=== PATIENT | female | born 1950 | race Caucasian/White ===

== ENCOUNTER 2017-07-28 07:37 | Day surgery (SDC) | payer BC ==
[2017-07-23 09:42] VITALS: BMI 25.0
[2017-07-28] MEDS: GENTAMICIN SULFATE 0.3% OPHTHALMIC (EYE DROPS) 5ML BOTTLE ONE ×2 (08:00→08:15)
[2017-07-28] MEDS: PHENYLEPHRINE 2.5% OPHTH SOLN 15 ML BOTTLE ONE ×5 (08:00→08:20)
[2017-07-28] MEDS: TROPICAMIDE 1% OPHTH SOLN 15 ML BOTTLE ONE ×5 (08:00→08:20)
[2017-07-28] MEDS: KETOROLAC TROMETHAMINE 0.5% 5 ML BOTTLE OPTHALMIC ONE ×5 (08:00→08:20)
[2017-07-28] MEDS: CYCLOPENTOLATE HCL 1% OPHTH SOLN 2 ML BOTTLE ONE ×5 (08:00→08:20)
[2017-07-28] MEDS ORDERED: TETRACAINE 0.5% OPHTH SOLN 2 ML BOTTLE ONE (09:27)
[2017-07-28] MEDS ORDERED: BUPIVACAINE HCL/PF 0.5% (5MG/ML) 10 ML VIAL ONE (09:27)
[2017-07-28] MEDS ORDERED: LIDOCAINE HCL 2% JELLY 10 ML CARTRIDGE ONE (09:27)
[2017-07-28] MEDS ORDERED: ACETAMINOPHEN 325 MG TABLET (FP) PO PRN (09:27)
[2017-07-28] MEDS ORDERED: ACETYLCHOLINE 1:100 INTRA-OCUL 20 MG/2 ML KIT ONE (09:27)
[2017-07-28] MEDS ORDERED: LIDOCAINE HCL/PF 2% SDV 5ML VIAL ONE ×2 (09:27→09:55)
[2017-07-28] MEDS ORDERED: MIDAZOLAM HCL 2 MG/2 ML SINGLE DOSE VIAL ONE ×2 (09:41→11:08)
[2017-07-28] MEDS ORDERED: PROPOFOL 20 ML ONE (09:55)
[2017-07-28 11:37] VITALS: TEMP 98.5
[2017-07-28 11:54] VITALS: BP 151/86; PULSE 80
--- NOTE | 2017-07-28 11:56 | OP ---
DATE OF OPERATION: 07/28/2017 TITLE OF PROCEDURE: Hypermature cataract extraction through miotic pupil of the right eye with lens implant. PREOPERATIVE DIAGNOSES: Hypermature cataract, pupillary miosis, right eye. POSTOPERATIVE DIAGNOSES: Hypermature cataract, pupillary miosis, right eye. SURGEON: Pineda Rooney MD ASPHALT HEATER OPERATOR SURGEON: Pineda Rooney MD COMPLICATIONS: None. ANESTHESIOLOGIST: Maude Echevarria MD FINDINGS AND PROCEDURE: After peribulbar anesthesia was given to the right eye, the patient was prepped and draped in the usual manner to expose the right eye with Tegaderm strips and lid speculum inserted in the right eye and the microscope brought into position over the right eye. Superior fornix-based flap was then fashioned for 10 mm using Yordy scissors and 0.12 forceps. Hemostasis achieved with electrocautery. The limbal groove was fashioned for 3 mm and dissected anterior into the clear cornea, and then, a 3-mm blade was used to enter the anterior chamber. Under Viscoat, a 360- degree anterior capsulotomy was performed, and phacoemulsification was then started of this very hypermature, 4++ nuclear sclerotic cataract. The pupil began to come down, and so, it was decided then to insert 4 iris hooks to enlarge the pupillary opening to about 8 mm. Phacoemulsification then proceeded on without complication. It was a difficult phacoemulsification due to the extreme hardness of the cataract, but this was done successfully without complication, followed by irrigation and aspiration of cortical material, leaving intact posterior capsule and a red reflex present. Provisc was injected in the posterior chamber to deepen the posterior capsule, and the implant was inspected carefully with the microscope, found to be free of defects, debris, and flaws. It was folded, placed in the Provisc-filled cartridge. The cartridge placed in the injector and then the implant injected into the eye such that the inferior haptic was in the inferior capsular bag and the superior haptic in the superior capsular bag and rotated in a horizontal position with a Sinskey hook. The Provisc was aspirated out, replaced with Miochol, Miostat, and BSS after the iris hooks all four of them were removed without complication. The wound was closed with a single interrupted 2-0 Ethilon suture and tested for leakage, and none was found. The conjunctival-tenon flap was reapproximated. As I mentioned, the Provisc was aspirated out and replaced with Miochol, Miostat, and BSS. At this point, the implant was fixated in the capsular bag, centrally located with a round pupil, intact posterior capsule, and a red reflex present. Topical Betoptic S and Maxitrol ophthalmic suspensions were placed, as was bacitracin and polymyxin B ophthalmic ointment. Tegaderm strips and lid speculum were removed from the lids. The lids were closed and a patch and shield placed on the eye. The patient was then discharged from the operating room to the recovery area in good condition, having tolerated the procedure well. Renae POLANCO/[id number]
== END 2017-07-28 11:55 | disposition home or self-care (01) ==
LOC: FASU 07:37
PROVIDERS: ATTEND Ophthalmology
PROC: 08RJ3JZ Replacement of Right Lens with Synthetic Substitute, Percutaneous Approach (ICD-10-PCS; principal; 2017-07-28 10:10)
DX: H25.21 Age-related cataract, morgagnian type, right eye (principal); H57.03 Miosis

== ENCOUNTER 2018-04-07 10:33 | Emergency (ER) | payer BC ==
[2018-04-07 10:45] VITALS: BP 155/89; PULSE 97; TEMP 98.2; BMI 25.0
[2018-04-07] MEDS ORDERED: AMPICILLIN NA/SULBACTAM NA 1.5 GM in SODIUM CHLORIDE 100 ML IVPB ONE (10:54)
[2018-04-07] MEDS ORDERED: AMPICILLIN NA/SULBACTAM NA 1.5 GM VIAL ONE (11:18)
--- NOTE | 2018-04-07 11:54 | PDOC ---
History of Present Illness - General Chief Complaint: Bite Stated Complaint: CAT BITE Time Seen by Provider: 04/07/18 10:36 History Source: Patient Exam Limitations: No Limitations - History of Present Illness Initial Comments: 04/07/18 11:49 67 y0 female here s/p cat bite to bilateral hands. pt was moving and trying to get cat into a box, bit her righthand and scratched. happened just prior to arrival. bleeding was controlled with pressure. cat is domestic cat. no f/c has had some swelling since bite. last tetanus is unknown. Past History - Past Medical History Allergies/Adverse Reactions: Allergies Allergy/AdvReac Type Severity Reaction Status Date / Time NSAIDS (Non-Steroidal AdvReac Mild Vomiting Verified 04/07/18 10:42 Anti-Inflamma ANYTHING THAT AFFECTS KIDNEYS AdvReac Unknown Uncoded 04/07/18 10:42 Home Medications: Ambulatory Orders Hydralazine HCl 50 mg PO BID 03/02/16 Levothyroxine [Synthroid -] 25 mcg PO DAILY 03/02/16 Montelukast Na [Singulair -] 10 mg PO HS 03/02/16 Pantoprazole Sodium 40 mg PO DAILY 03/02/16 Pravastatin Sodium [Pravachol] 40 mg PO DAILY 03/02/16 Duloxetine HCl [Cymbalta -] 30 mg PO DAILY #30 capsule. 03/06/16 Ascorbate Calcium [Vitamin C] 500 mg PO DAILY 07/23/17 Ferrous Sulfate [Iron] 325 mg PO DAILY 07/23/17 Gabapentin 300 mg PO HS 07/23/17 Hydroxychloroquine Sulfate [Plaquenil] 200 mg PO DAILY 07/23/17 Amoxicillin/Potassium Clav [Augmentin 875-125 Tablet] 1 each PO BID #14 tablet 04/07/18 Anemia: Yes (ON IRON) Asthma: No Cancer: No Cardiac Disorders: No CVA: No COPD: No CHF: No Dementia: No Diabetes: No GI Disorders: Yes (GERD) Disorders: Yes ("TROUBLE" WITH KIDNEYS SEVERAL YRS AGO DUE TO TOO MUCH ADVIL) HTN: Yes Hypercholesterolemia: Yes Liver Disease: No Seizures: No Thyroid Disease: Yes - Surgical History Abdominal Surgery: No Appendectomy: No Cardiac Surgery: No Cholecystectomy: No Lung Surgery: No Neurologic Surgery: No Orthopedic Surgery: Yes (RIGHT TKR 01/22/2017) - Suicide/Smoking/Psychosocial Hx Smoking History: Never smoked Have you smoked in the past 12 months: No Information on smoking cessation initiated: No Hx Alcohol Use: No Drug/Substance Use Hx: No Substance Use Type: None Hx Substance Use Treatment: No Review of Systems - Review of Systems Constitutional: No: Chills, Diaphoresis, Fever Respiratory: No: Orthopnea, Shortness of Breath Musculoskeletal: No: Back Pain, Gout, Joint Pain Integumentary: Yes: Other (bite puncture wounds) Neurological: No: Headache, Numbness Psychiatric: No: Stressors, Sleep Pattern Change All Other Systems: Reviewed and Negative *Physical Exam - Vital Signs Last Vital Signs Temp Pulse Resp BP Pulse Ox 98.2 F 97 H 20 155/89 100 04/07/18 10:33 04/07/18 10:33 04/07/18 10:33 04/07/18 10:33 04/07/18 10:33 - Physical Exam Comments: 04/07/18 11:51 awake alert lungs clear bilaterally heart systolic murmur 2/6. no r/g. skin warma nd dry. bilat hands with small puncture wounds , larger stellate wound/ laceration to right dorsum hand near index finger knuckle. distally n/v intact. flexion and extension tendons intact. 2 + radial and ulnar pulses bilaterally. Moderate Sedation - Procedure Monitoring Vital Signs: Procedure Monitoring Vital Signs Temperature 98.2 F 04/07/18 10:33 Pulse Rate 97 H 04/07/18 10:33 Respiratory Rate 20 04/07/18 10:33 Blood Pressure 155/89 04/07/18 10:33 O2 Sat by Pulse Oximetry (%) 100 04/07/18 10:33 ED Treatment Course - RADIOLOGY Radiology Studies Ordered: Category Date Time Status HAND- LEFT [RAD] Stat Radiology 04/07/18 10:54 Taken HAND- RIGHT [RAD] Stat Radiology 04/07/18 10:54 Taken - Medications Given in the ED: ED Medications Discontinued Medications Generic Name Dose Route Start Last Admin Trade Name Freq PRN Reason Stop Dose Admin Ampicillin Sodium/Sulbactam 100 mls @ 200 mls/hr 04/07/18 10:54 04/07/18 11: 39 Sodium 1.5 gm/ Sodium Chloride IVPB 04/07/18 11:23 200 mls/hr ONCE ONE Administration Medical Decision Making - Medical Decision Making 04/07/18 11:52 67 yo s/p cat bite. multilple small punctures. will leave lac open due to concerns for infection. will soak in water with betadine. rings removed. will give iv unasyn. and dc on augmentin. xray r/o fx or foreign body. 04/07/18 12:17 xray negative for fx or foreign body, dc home. soaked in water and betadine. rings removed. IV unasyn given. dc on augmentin with instructions for wound follow up. recheck in 48 hrs. *DC/Admit/Observation/Transfer Diagnosis at time of Disposition: Cat bite, Puncture wound - Discharge Dispostion Disposition: HOME Condition at time of disposition: Improved - Prescriptions Prescriptions: Amoxicillin/Potassium Clav [Augmentin 875-125 Tablet] 1 each PO BID #14 tablet - Referrals - Patient Instructions Printed Discharge Instructions: How to Care for a Domestic Animal Bite, DI for Animal Bites Additional Instructions: you need to soak your hand in soapy water twice daily. you should also take augmentin antiobiotics twice daily x one week. return for repeat evaluation in 48 hours. return soon for redness, swelling or red streaking up the arm, or fever or any concerns. you can take tylenol 500 mg every 8 hrs as needed for pain. - Post Discharge Activity
== END 2018-04-07 12:37 | disposition home or self-care (01) ==
LOC: FER 10:33
DX: S61.431A Puncture wound without foreign body of right hand, initial encounter (principal); S61.451A Open bite of right hand, initial encounter; W55.01XA Bitten by cat, initial encounter; Y93.89 Activity, other specified; Y92.89 Other specified places as the place of occurrence of the external cause
CPT/HCPCS: 73130-TC-LT-FY; 73130-TC-RT-FY; 99282-25

== ENCOUNTER 2018-12-29 13:39 | Inpatient (IN) | payer BC, OTHER ==
--- NOTE | 2018-12-29 14:20 | PDOC ---
Attending Attestation - Resident Resident Name: Jed Pierce - ED Attending Attestation I have performed the following: I have examined & evaluated the patient, The case was reviewed & discussed with the resident, I agree w/resident's findings & plan, Exceptions are as noted - HPI HPI: 12/30/18 08:54 68-year-old female without significant cardiac history presents with shortness of breath, orthopnea, and dyspnea on exertion for several weeks, worse the last 3 days. Referred from urgent care for further evaluation of an abnormal EKG. No chest pain, nausea, diaphoresis, or other obvious sign of acute AR. No fever, productive cough, or other sign of significant infection. - Physicial Exam PE: 12/30/18 08:56 Physical exam: Alert and oriented no acute distress cheerful and cooperative. Does not appear to be tachypneic or dyspneic HEENT clear Lungs clear Full breath sounds bilaterally without wheezes rales or rhonchi CV S1 and S2 normal without murmur or gallop pulses full and symmetric no JVD or edema no bruits Abdomen benign Neurological intact - Medical Decision Making 12/30/18 08:56 Assessment: Patient symptoms are vague and poorly described. They are primarily respiratory, but suggest congestive heart failure. Rule out occult AR, occult pneumonia, pulmonary embolus Plan: EKG reveals nonspecific ST-T wave changes in the inferolateral leads Cardiac enzymes reveal an elevated troponin. Chest x-ray prominent hilum on the right, possible infiltrate Patient likely sustained a silent AR. Non-STEMI. Resident Triston Pierce consulted security solutions architect motion picture set up worker. Patient treated with aspirin and admitted to telemetry for observation and further treatment. Stable upon transfer to the medical unit.
[2018-12-29 15:21] LABS: EOS % 3.3 % (0-4.5); HEMATOCRIT 29.1 % (32.4-45.2); HEMOGLOBIN 9.8 GM/dl (10.7-15.3); LYMPH % 13.1 % (8-40); MCH 31.6 pg (25.7-33.7); MCHC 33.7 g/dl (32.0-36.0); MEAN PLT VOLUME 8.1 fl (7.5-11.1); MONO % 11.4 % (3.8-10.2); NEUT % 69.2 % (42.8-82.8); PLATELET COUNT 362 K/MM3 (134-434); RDW 13.4 % (11.6-15.6)
[2018-12-29] MEDS ORDERED: CEFTRIAXONE 2,000 MG in DEXTROSE 5%-WATER - 50 ML IVPB ONE (16:11)
[2018-12-29 16:31] LABS: ALBUMIN 3.9 g/dl (3.4-5.0); BILIRUBIN,TOTAL 0.7 mg/dl (0.2-1); CALCIUM 9.4 mg/dl (8.5-10); CREATININE 2.2 mg/dl (0.55-1.3); POTASSIUM 3.8 mmol/L (3.5-5.1); TOT PROT 6.7 g/dl (6.4-8.2)
[2018-12-29] MEDS ORDERED: ASPIRIN 81 MG CHEWABLE TABLETS PO ONE (16:58)
[2018-12-29] MEDS ORDERED: ASPIRIN 81 MG CHEWABLE TABLETS ONE (17:14)
--- NOTE | 2018-12-29 18:35 | PDOC ---
History of Present Illness - General Chief Complaint: Shortness of Breath Stated Complaint: SOB Time Seen by Provider: 12/29/18 14:03 History Source: Patient, Old Records Exam Limitations: No Limitations - History of Present Illness Initial Comments: HPI: 68 y/o female presenting to ER from [facility] complaining of two months of shortness of breath and congestion that acutely worsening over the past few days. Believes breathing pattern became more shallow and sounded funny this morning. Able to take a deep breath. Endorses productive cough but does not know the appearance of the sputum. Endorses worsening exertional dyspnea and orthopnea. Denies chest pain, bilateral leg swelling, or calf tenderness. No recent travel or periods of immobilization. No estrogen therapy. Copy of EKG from revealed sinus tachycardia with a ventricular rate of 136 bpm. Has attempted relief with Mucinex and Albuterol DuoNebs. Believes her symptoms were related to her long history of allergies and because she has not received allergy shots in four years. Pt has a history of DVT x2 in 2007. First episode possibly believed to be provoked by a kidney infection. Second occurred several months later without clear exciting event. Discontinued AC therapy in 2009. PCP: Dr. Medina Family Hx: - No history of PE or clotting disorders Social Hx: - Never smoker Medical Hx: - HTN - HLD - Hypothyroidism - CKD, followed by Dr. Odell - H/o DVT x2 (detailed above), no AC - Arthritis - S/p R knee replacement Review of Systems: In addition to that documented in the HPI above, the additional ROS was obtained : Constitutional: Denies fevers or chills Head: Denies vision changes ENMT: Denies sore throat CV: Denies chest pain Resp: Per HPI GI: Denies vomiting or diarrhea : Denies painful urination MSK: Denies recent trauma Skin: Denies new rashes Neuro: Denies new numbness or tingling or weakness Endocrine: Denies polyuria Heme: Denies bleeding or bruising Physical Examination: Constitutional: Well-developed, well-nourished adult female in no acute distress or obvious discomfort. Found semi-fowlers on hospital bed. Answered all questions appropriately and completely. Speech was non-labored, non- pressured. Head: Normocephalic. No obvious external signs of trauma. Cardiovascular / Chest: Regular rate and regular rhythm. No murmur, rubs, clicks , or gallops. Peripheral pulses: radial pulses full. No pretibial edema. Respiratory: Breathing unlabored. Speaking in multi-word responses without pausing. Equal chest rise and fall. Clear to auscultation bilaterally. No stridor, no wheezing, no rhonchi. Gastrointestinal: abdomen is soft, non-tender, non-distended. Neuro: Alert and oriented x4. Moving all four extremities spontaneously. Skin: Warm, dry, and intact. No calf tenderness or skin lesions. Psych: Affect: appropriate. Mood: normal. MDM: *Reviewed vital signs, nursing notes, and prior visit documentation (if available). 68 y/o female presenting for acute change in chronic SOB. H/o of DVT but denies any similar complaints. Afebrile. Vitals unremarkable for hypotension or tachycardia. Physical exam as described above. CXR revealed left sided consolidation. Suspect likely pneumonia without healthcare exposure. Ordered Ceftriaxone and Azithromycin for abx coverage. Low suspicion for PE. Cr elevated to 2.2. Pt reports that her normal is 2.0. Troponin elevated. No ischemic EKG findings. Ordered ASA. Troponin repeated at 1.5 hrs without change. Repeat EKG unchanged from initial. Low suspicion for ACS but will discuss with cardiology. No history of elevated troponin on record. 18:[address] Palumbo. Verbally appraised of the pts HPI, ED course, and current plan of management. Suggested ASA only for now. Pt to be admitted to telemetry. Will evaluate in the morning. Case discussed in person with ANGE Traore. Verbally appraised of the pts HPI, ED course, and current plan of management. Will admit pt to ICU for attending Dr. Walton. Jed Pierce M.D., PGY2 Emergency Medicine Resident 12/29/18 18:49 Past History - Past Medical History Allergies/Adverse Reactions: Allergies Allergy/AdvReac Type Severity Reaction Status Date / Time NSAIDS (Non-Steroidal AdvReac Mild Vomiting Verified 12/29/18 13:40 Anti-Inflamma ANYTHING THAT AFFECTS KIDNEYS AdvReac Unknown Uncoded 12/29/18 13:40 Home Medications: Ambulatory Orders Hydralazine HCl 50 mg PO BID 03/02/16 Levothyroxine [Synthroid -] 25 mcg PO DAILY 03/02/16 Pantoprazole Sodium 40 mg PO DAILY 03/02/16 Pravastatin Sodium [Pravachol] 60 mg PO DAILY 03/02/16 Duloxetine HCl [Cymbalta -] 30 mg PO DAILY #30 capsule. 03/06/16 Gabapentin 300 mg PO HS 07/23/17 Anemia: Yes (ON IRON) Asthma: No Cancer: No Cardiac Disorders: No CVA: No COPD: No CHF: No Dementia: No Diabetes: No GI Disorders: Yes (GERD) Disorders: Yes ("TROUBLE" WITH KIDNEYS SEVERAL YRS AGO DUE TO TOO MUCH ADVIL) HTN: Yes Hypercholesterolemia: Yes Liver Disease: No Seizures: No Thyroid Disease: Yes - Surgical History Abdominal Surgery: No Appendectomy: No Cardiac Surgery: No Cholecystectomy: No Lung Surgery: No Neurologic Surgery: No Orthopedic Surgery: Yes (RIGHT TKR 01/22/2017) - Psycho Social/Smoking Cessation Hx Smoking History: Never smoked Have you smoked in the past 12 months: No Hx Alcohol Use: No Drug/Substance Use Hx: No Substance Use Type: None Hx Substance Use Treatment: No *Physical Exam - Vital Signs Last Vital Signs Temp Pulse Resp BP Pulse Ox 98.6 F 96 H 20 146/92 96 12/29/18 13:39 12/29/18 13:39 12/29/18 13:39 12/29/18 13:39 12/29/18 13:39 ED Treatment Course - LABORATORY CBC & Chemistry Diagram: 12/29/18 15:13 12/29/18 15:40 - ADDITIONAL ORDERS Additional order review: Laboratory Results 12/29/18 12/29/18 12/29/18 17: 15:40 15:40 Sodium 140 Potassium 3.8 Chloride 105 Carbon Dioxide 23 Anion Gap 12 BUN 40.0 H Creatinine 2.2 H Est GFR (CKD-EPI)AfAm 25.66 Est GFR (CKD-EPI)NonAf 22.14 Random Glucose 111 H Calcium 9.4 Total Bilirubin 0.7 AST 19 ALT 12 L Alkaline Phosphatase 57 Troponin I 0.12 H 0.13 H Total Protein 6.7 Albumin 3.9 12/29/18 15:13 RBC 3.10 L MCV 94.0 MCHC 33.7 RDW 13.4 MPV 8.1 Neutrophils % 69.2 Lymphocytes % 13.1 Monocytes % 11.4 H Eosinophils % 3.3 Basophils % 3.0 H - RADIOLOGY Radiology Studies Ordered: Category Date Time Status CHEST PA & LAT [RAD] Stat Radiology 12/29/18 14:47 Completed - Medications Given in the ED: ED Medications Discontinued Medications Generic Name Dose Route Start Last Admin Trade Name Freq PRN Reason Stop Dose Admin Aspirin 324 mg 12/29/18 16:58 12/29/18 17:17 Asa - PO 12/29/18 16:59 324 mg ONCE ONE Administration Ceftriaxone Sodium 2,000 mg/ 50 mls @ 100 mls/hr 12/29/18 16:11 12/29/18 17: 08 Dextrose IVPB 12/29/18 16:40 100 mls/hr ONCE ONE Administration Discharge - Discharge Information Problems reviewed: Yes Clinical Impression/Diagnosis: Elevated troponin, Shortness of breath Pneumonia Qualifiers: Pneumonia type: due to unspecified organism Laterality: left Lung location: unspecified part of lung Qualified Code(s): J18.9 - Pneumonia, unspecified organism CKD (chronic kidney disease) Qualifiers: Chronic kidney disease stage: unspecified stage Qualified Code(s): N18.9 - Chronic kidney disease, unspecified Condition: Stable - Admission Yes - Follow up/Referral Referrals: Perry Medina MD [Primary Care Provider] - - Patient Discharge Instructions - Post Discharge Activity
--- NOTE | 2018-12-29 18:53 | HP ---
CHIEF COMPLAINT: Shortness of breath PCP: Dr. Medina HISTORY OF PRESENT ILLNESS: 68 year-old female with a PMH significant for HTN, HLD, iron-deficiency anemia, DVT x 2 in 2007 not on anticoagulation, CKD, GERD, thyroid disease, and OA. Presented to ER from [facility] complaining of two months of shortness of breath and congestion that acutely worsening over the past few days. Believes breathing pattern became more shallow and sounded funny this morning. Endorses productive cough but does not know the appearance of the sputum. Endorses worsening exertional dyspnea and orthopnea. Denies chest pain, bilateral leg swelling, or calf tenderness. No recent travel or periods of immobilization. No estrogen therapy. Copy of EKG from revealed sinus tachycardia with a ventricular rate of 136 bpm. Has attempted relief with Mucinex and Albuterol DuoNebs. Believes her symptoms were related to her long history of allergies and because she has not received allergy shots in four years. Pt has a history of DVT x2 in 2007. First episode possibly believed to be provoked by a kidney infection. Second occurred several months later without clear exciting event. Discontinued AC therapy in 2009. 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 HOME MEDICATIONS: Home Medications Medication Instructions Recorded Hydralazine HCl 50 mg PO BID 03/02/16 Levothyroxine [Synthroid -] 25 mcg PO DAILY 03/02/16 Pantoprazole Sodium 40 mg PO DAILY 03/02/16 Pravastatin Sodium [Pravachol] 60 mg PO DAILY 03/02/16 Duloxetine HCl [Cymbalta -] 30 mg PO DAILY #30 capsule. 03/06/16 Gabapentin 300 mg PO HS 07/23/17 REVIEW OF SYSTEMS CONSTITUTIONAL: Absent: fever, chills, diaphoresis, generalized weakness, malaise, loss of appetite, weight change HEENT: Absent: rhinorrhea, nasal congestion, throat pain, throat swelling, difficulty swallowing, mouth swelling, ear pain, eye pain, visual changes CARDIOVASCULAR: Absent: chest pain, syncope, palpitations, irregular heart rate, lightheadedness , peripheral edema RESPIRATORY: +SOB Absent: cough, shortness of breath, dyspnea with exertion, orthopnea, wheezing, stridor, hemoptysis GASTROINTESTINAL: Absent: abdominal pain, abdominal distension, nausea, vomiting, diarrhea, constipation, melena, hematochezia GENITOURINARY: Absent: dysuria, frequency, urgency, hesitancy, hematuria, flank pain, genital pain MUSCULOSKELETAL: Absent: myalgia, arthralgia, joint swelling, back pain, neck pain SKIN: Absent: rash, itching, pallor HEMATOLOGIC/IMMUNOLOGIC: Absent: easy bleeding, easy bruising, lymphadenopathy, frequent infections ENDOCRINE: Absent: unexplained weight gain, unexplained weight loss, heat intolerance, cold intolerance NEUROLOGIC: Absent: headache, focal weakness or paresthesias, dizziness, unsteady gait, seizure, mental status changes, bladder or bowel incontinence PSYCHIATRIC: Absent: anxiety, depression, suicidal or homicidal ideation, hallucinations. PHYSICAL EXAMINATION Vital Signs - 24 hr 12/29/18 13:39 Temperature 98.6 F Pulse Rate 96 H Respiratory 20 Rate Blood Pressure 146/92 O2 Sat by Pulse 96 Oximetry (%) GENERAL: Awake, alert, and fully oriented, in no acute distress. LUNGS: Breath sounds equal, clear to auscultation bilaterally. No wheezes, and no crackles. No accessory muscle use. HEART: Regular rate and rhythm, normal S1 and S2 without murmur, rub or gallop. ABDOMEN: Soft, nontender, not distended MUSCULOSKELETAL: Normal range of motion at all joints. No bony deformities or tenderness. No CVA tenderness. UPPER EXTREMITIES: 2+ pulses, warm, well-perfused. No cyanosis. No clubbing. No peripheral edema. LOWER EXTREMITIES: 2+ pulses, warm, well-perfused. No calf tenderness. No peripheral edema. NEUROLOGICAL: Cranial nerves II-XII intact. Normal speech. Laboratory Results - last 24 hr 12/29/18 12/29/18 12/29/18 15:13 15:40 15:40 WBC 6.0 RBC 3.10 L Hgb 9.8 L Hct 29.1 L MCV 94.0 MCH 31.6 MCHC 33.7 RDW 13.4 Plt Count 362 MPV 8.1 Absolute Neuts (auto) 4.1 Neutrophils % 69.2 Lymphocytes % 13.1 Monocytes % 11.4 H Eosinophils % 3.3 Basophils % 3.0 H Sodium 140 Potassium 3.8 Chloride 105 Carbon Dioxide 23 Anion Gap 12 BUN 40.0 H Creatinine 2.2 H Est GFR (CKD-EPI)AfAm 25.66 Est GFR (CKD-EPI)NonAf 22.14 Random Glucose 111 H Calcium 9.4 Total Bilirubin 0.7 AST 19 ALT 12 L Alkaline Phosphatase 57 Troponin I 0.13 H Total Protein 6.7 Albumin 3.9 12/29/18 17:19 WBC RBC Hgb Hct MCV MCH MCHC RDW Plt Count MPV Absolute Neuts (auto) Neutrophils % Lymphocytes % Monocytes % Eosinophils % Basophils % Sodium Potassium Chloride Carbon Dioxide Anion Gap BUN Creatinine Est GFR (CKD-EPI)AfAm Est GFR (CKD-EPI)NonAf Random Glucose Calcium Total Bilirubin AST ALT Alkaline Phosphatase Troponin I 0.12 H Total Protein Albumin ASSESSMENT/PLAN: 68 year-old female with a PMH significant for HTN, HLD, iron-deficiency anemia, DVT x 2 in 2007 not on anticoagulation, CKD, GERD, thyroid disease, and OA. SOB Tachycardia h/o DVT --Cr 2.2, contraindication for contrast dye --start heparin drip --pulmonary consult to assess for VQ scan --extensive dental work over past 6 months; will get echo --seen by PCP on 11/29, given inhaler and antibiotics; CXR possible early infiltrate but afebrile, no leukocytosis CKD --baseline Cr ~1.9 Elevated troponin --two pending Hypertension --continue hydralazine Hyperlipidemia --continue Lipitor GERD --continue protonix Hypothyroidism --continue levothyroxine OA --continue Gabapentin Depression/anxiety --continue Cymbalta FEN Fluids: PO intake adequate Electrolytes: replete as indicated Nutrition: low sodium DVT prophylaxis: heparin drip, PTT goal 60-80 Physical therapy Dispo: continues to require inpatient care. Full code. Visit type - Emergency Visit Emergency Visit: Yes ED Registration Date: 12/29/18 Care time: The patient presented to the Emergency Department on the above date and was hospitalized for further evaluation of their emergent condition. - New Patient This patient is new to me today: Yes Date on this admission: 01/01/19 - Critical Care Critical Care patient: No
[2018-12-29 20:29] LABS: INR 1.05 (0.82-1.09); PROTHROMBIN TIME (PATIENT) 11.7 SEC (10.2-13.0)
[2018-12-29 21:04] VITALS: BMI 23.3
[2018-12-29] MEDS ORDERED: HEPARIN NA (PORCINE) 5,000 UNITS/ML 1ML VIAL IVPUSH PRN ×2 (21:39)
[2018-12-29] MEDS: GABAPENTIN 300 MG CAPSULE (FP) PO SCH (21:40)
[2018-12-29] MEDS: hydrALAZINE HCL 50 MG TABLET (FP) PO SCH (21:40)
[2018-12-29] MEDS ORDERED: HEPARIN NA (PORCINE) 5,000 UNITS/ML 1ML VIAL IVPUSH ONE ×2 (21:46)
[2018-12-29] MEDS ORDERED: ALBUTEROL SO4 2.5/IPRATROPIUM 0.5 INH SOL 3 ML VIAL.NEB. NEB ONE (22:02)
[2018-12-29] MEDS: HEPARIN INFUSION - 25,000 UNITS/500 ML INFUS.BAG IVPB SCH (22:38)
[2018-12-30] MEDS: LEVOTHYROXINE NA 25 MCG TABLET (FP) PO SCH (06:41)
[2018-12-30 07:51] LABS: BASO % 0.8 % (0-2.0); EOS % 3.7 % (0-4.5); HEMATOCRIT 28.3 % (32.4-45.2); HEMOGLOBIN 9.2 GM/dl (10.7-15.3); LYMPH % 15.2 % (8-40); MCH 30.9 pg (25.7-33.7); MCHC 32.4 g/dl (32.0-36.0); MEAN CELL VOLUME 95.2 fl (80-96); MEAN PLT VOLUME 8.3 fl (7.5-11.1); MONO % 12.8 % (3.8-10.2); NEUT % 67.5 % (42.8-82.8); PLATELET COUNT 319 K/MM3 (134-434); RBC 2.97 M/mm3 (3.60-5.2); RDW 13.2 % (11.6-15.6); WHITE BLOOD COUNT 5.2 K/mm3 (4.0-10.8)
[2018-12-30 08:09] LABS: CALCIUM 8.8 mg/dl (8.5-10); POTASSIUM 3.9 mmol/L (3.5-5.1)
[2018-12-30] MEDS: ALBUTEROL SO4 2.5/IPRATROPIUM 0.5 INH SOL 3 ML VIAL.NEB. NEB SCH ×3 (08:44→20:15)
[2018-12-30 08:56] LABS: ALBUMIN 3.3 g/dl (3.4-5.0); BILIRUBIN,TOTAL 0.7 mg/dl (0.2-1); CREATININE 2.4 mg/dl (0.55-1.3); MAGNESIUM 2.1 mg/dL (1.8-2.4); TOT PROT 6.2 g/dl (6.4-8.2)
[2018-12-30] MEDS: PANTOPRAZOLE 40 MG TABLET (FP) PO SCH (10:14)
[2018-12-30] MEDS: hydrALAZINE HCL 50 MG TABLET (FP) PO SCH ×2 (10:14→22:16)
[2018-12-30] MEDS: DULoxetine HCL 30 MG CAPSULE.DR PO SCH (10:14)
--- NOTE | 2018-12-30 12:17 | ECHO ---
Name: MONREAL, JORGE B Exam:Adult Echocardiogram Study Date: 12/30/2018 10:38 AM Age: 68 yrs Reason For Study: possible pe; assess r strain Height: 65 in Weight: 150 lb BSA: 1.7 m2 MMode/2D Measurements & Calculations IVSd: 0.91 cm Ao root diam: 2.6 cm LVIDd: 5.5 cm LA dimension: 3.5 cm LVIDs: 3.8 cm LVPWd: 1.1 cm LVPWs: 1.4 cm EDV(Teich): 144.8 ml ESV(Teich): 63.5 ml LVOT diam: 1.8 cm EDV(MOD-sp4): 144.0 ml Doppler Measurements & Calculations MV E max kiley: 125.2 cm/sec MVA(VTI): 1.5 cm2 MV A max kiley: 127.7 cm/sec MV V2 max: 160.0 cm/sec MV E/A: 0.98 MV max P.2 mmHg MV V2 mean: 126.3 cm/sec MV mean P.8 mmHg MV V2 VTI: 31.8 cm Ao V2 max: 394.0 cm/sec MV dec slope: 1817 cm/sec2 Ao max P.3 mmHg Ao V2 mean: 301.3 cm/sec Ao mean P.1 mmHg Ao V2 VTI: 86.9 cm LEDY(I,D): 0.54 cm2 LEDY(V,D): 0.65 cm2 LV V1 max P.9 mmHg MR max kiley: 550.0 cm/sec LV V1 mean P.0 mmHg MR max P.0 mmHg LV V1 max: 98.3 cm/sec LV V1 mean: 65.8 cm/sec LV V1 VTI: 18.1 cm SV(LVOT): 46.9 ml TR max kiley: 332.9 cm/sec TR max P.3 mmHg PA V2 max: 86.2 cm/sec PA max P.0 mmHg Procedure A complete two-dimensional transthoracic echocardiogram was performed (2D, M-mode, Doppler and color flow Doppler). Left Ventricle The left ventricle is mildly dilated. Left ventricular systolic function is severely reduced. Ejectio n Fraction = 25-30%. There is severe global hypokinesis of the left ventricle. Right Ventricle The right ventricle is normal in size and function. Atria Normal left and right atrial size and function. Mitral Valve There is mild to moderate mitral regurgitation. Tricuspid Valve There is mild tricuspid regurgitation. There is mild pulmonary hypertension. Aortic Valve Severe valvular aortic stenosis. No aortic regurgitation is present. Pulmonic Valve There is no pulmonic valvular regurgitation. Great Vessels The aortic root is normal size. Pericardium/Pleura There is no pericardial effusion. Interpretation Summary The left ventricle is mildly dilated. Left ventricular systolic function is severely reduced. There is severe global hypokinesis of the left ventricle. The right ventricle is normal in size and function. There is mild to moderate mitral regurgitation. There is mild tricuspid regurgitation. There is mild pulmonary hypertension. Severe valvular aortic stenosis. MD Drew Jain 12/30/2018 12:17 PM
--- NOTE | 2018-12-30 13:25 | CON.CARD ---
Consult Consult Specialty:: Cardiology Referred by:: Medicine Reason for Consultation:: shortness of breath - History of Present Illness Chief Complaint: shortness of breath History of Present Illness: 68F h/o HTN, HLD, anemia, DVT x 2 in 2007 not on AC, CKD, thyroid dz and OA p/w dyspnea for the last month. Got much worse in the last few days, notes exertional short of breath, and worse with lying down. No edema, chest pain, palps. No prior cardiac history, sees Dr. Medina. Had recent dental surgery with multiple teeth removed, on abx. - Alcohol/Substance Use Hx Alcohol Use: No - Smoking History Smoking history: Never smoked Have you smoked in the past 12 months: No Home Medications - Allergies Allergies/Adverse Reactions: Allergies Allergy/AdvReac Type Severity Reaction Status Date / Time NSAIDS (Non-Steroidal AdvReac Mild Vomiting Verified 12/29/18 13:40 Anti-Inflamma ANYTHING THAT AFFECTS KIDNEYS AdvReac Unknown Uncoded 12/29/18 13:40 - Home Medications Home Medications: Ambulatory Orders Hydralazine HCl 50 mg PO BID 03/02/16 Levothyroxine [Synthroid -] 25 mcg PO DAILY 03/02/16 Pantoprazole Sodium 40 mg PO DAILY 03/02/16 Pravastatin Sodium [Pravachol] 60 mg PO DAILY 03/02/16 Duloxetine HCl [Cymbalta -] 30 mg PO DAILY #30 capsule. 03/06/16 Gabapentin 300 mg PO HS 07/23/17 Family Medical History Family History: Unremarkable Review of Systems - Review of Systems Constitutional: reports: No Symptoms Eyes: reports: No Symptoms HENT: reports: No Symptoms Neck: reports: No Symptoms Cardiovascular: reports: No Symptoms Respiratory: reports: No Symptoms Gastrointestinal: reports: No Symptoms Genitourinary: reports: No Symptoms Musculoskeletal: reports: No Symptoms Integumentary: reports: No Symptoms Neurological: reports: No Symptoms Endocrine: reports: No Symptoms Hematology/Lymphatic: reports: No Symptoms Psychiatric: reports: No Symptoms Vital Signs: Vital Signs Temperature 98.5 F 12/30/18 03:00 Pulse Rate 97 H 12/30/18 03:00 Respiratory Rate 20 12/30/18 03:00 Blood Pressure 143/92 12/30/18 03:00 O2 Sat by Pulse Oximetry (%) 93 L 12/30/18 09:00 Constitutional: Yes: No Distress, Calm Eyes: Yes: Conjunctiva Clear, EOM Intact HENT: Yes: Atraumatic, Normocephalic Neck: Yes: Supple, Trachea Midline Respiratory: Yes: Regular, Rales (makayla at bases) Gastrointestinal: Yes: Normal Bowel Sounds, Soft Cardiovascular: Yes: Regular Rate and Rhythm JVD: Yes Heart Sounds: Yes: S1, S2 Murmur: Yes: Systolic Murmur, Grade 2 Extremities: No: Cold Edema: No Integumentary: No: Jaundice Neurological: Yes: Alert, Oriented Psychiatric: No: Agitated - Other Data Labs, Other Data: CBC, BMP 12/30/18 07:30 12/30/18 07:30 INR, PTT INR 1.05 (0.82-1.09) 12/29/18 20:00 Troponin, BNP 12/29/18 12/29/18 12/29/18 15:40 17:19 23:30 Troponin I 0.13 H 0.12 H 0.12 H 12/30/18 06:30 Troponin I 0.12 H Troponin, BNP 12/29/18 12/29/18 12/29/18 15:40 17:19 23:30 Troponin I 0.13 H 0.12 H 0.12 H 12/30/18 06:30 Troponin I 0.12 H Assessment/Plan echo 12/2018 LV mildly dilated, LV function severely reduced, severe global hypokinesis of LV, RV nl, mild to mod MR, mild TR, mild PH, severe (Vmax 3.9 m/s, mean gradient 40 mmHg) tele: sinus, sinus tachycardia acute on chronic systolic HF - new diagnosis, EF 25-30% - start lasix IV, monitor Cr, weights, lytes - defer ACEI (ELIZABETH) and bb for now given acute exacerbation - cont hydralazine - will plan for ischemic workup with cardiac cath as Cr improves elevated troponin - EKG no ischemic changes, indeterminate range, flat trend - likely demand in setting of HF severe aortic stenosis - per patient oil 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
[2018-12-30] MEDS ORDERED: FUROSEMIDE 40 MG/4 ML INJECTABLE VIAL IVPUSH ONE (13:31)
--- NOTE | 2018-12-30 13:37 | PN ---
Physical Exam: SUBJECTIVE: Patient seen and examined OBJECTIVE: Vital Signs Period Temp Pulse Resp BP Sys/Calderon Pulse Ox Last 24 Hr 98.3 F-98.6 F 96-108 15-20 143-156/85-97 93-97 GENERAL: Awake, alert, and fully oriented, in no acute distress. LUNGS: Breath sounds equal, clear to auscultation bilaterally. No wheezes, and no crackles. No accessory muscle use. HEART: Regular rate and rhythm, normal S1 and S2 without murmur, rub or gallop. ABDOMEN: Soft, nontender, not distended MUSCULOSKELETAL: Normal range of motion at all joints. No bony deformities or tenderness. No CVA tenderness. UPPER EXTREMITIES: 2+ pulses, warm, well-perfused. No cyanosis. No clubbing. No peripheral edema. LOWER EXTREMITIES: 2+ pulses, warm, well-perfused. No calf tenderness. No peripheral edema. NEUROLOGICAL: Cranial nerves II-XII intact. Normal speech. Laboratory Results - last 24 hr 12/29/18 12/29/18 12/29/18 15:13 15:40 15:40 WBC 6.0 RBC 3.10 L Hgb 9.8 L Hct 29.1 L MCV 94.0 MCH 31.6 MCHC 33.7 RDW 13.4 Plt Count 362 MPV 8.1 Absolute Neuts (auto) 4.1 Neutrophils % 69.2 Lymphocytes % 13.1 Monocytes % 11.4 H Eosinophils % 3.3 Basophils % 3.0 H PT with INR INR PTT (Actin FS) Sodium 140 Potassium 3.8 Chloride 105 Carbon Dioxide 23 Anion Gap 12 BUN 40.0 H Creatinine 2.2 H Est GFR (CKD-EPI)AfAm 25.66 Est GFR (CKD-EPI)NonAf 22.14 Random Glucose 111 H Calcium 9.4 Magnesium Total Bilirubin 0.7 AST 19 ALT 12 L Alkaline Phosphatase 57 Troponin I 0.13 H Total Protein 6.7 Albumin 3.9 12/29/18 12/29/18 12/29/18 17:19 20:00 20:00 WBC RBC Hgb Hct MCV MCH MCHC RDW Plt Count MPV Absolute Neuts (auto) Neutrophils % Lymphocytes % Monocytes % Eosinophils % Basophils % PT with INR 11.7 INR 1.05 PTT (Actin FS) 29.5 Sodium Potassium Chloride Carbon Dioxide Anion Gap BUN Creatinine Est GFR (CKD-EPI)AfAm Est GFR (CKD-EPI)NonAf Random Glucose Calcium Magnesium Total Bilirubin AST ALT Alkaline Phosphatase Troponin I 0.12 H Total Protein Albumin 12/29/18 12/30/18 12/30/18 23:30 06:30 07:30 WBC 5.2 RBC 2.97 L Hgb 9.2 L Hct 28.3 L MCV 95.2 MCH 30.9 MCHC 32.4 RDW 13.2 Plt Count 319 MPV 8.3 Absolute Neuts (auto) 3.5 Neutrophils % 67.5 Lymphocytes % 15.2 Monocytes % 12.8 H Eosinophils % 3.7 Basophils % 0.8 PT with INR INR PTT (Actin FS) Sodium Potassium Chloride Carbon Dioxide Anion Gap BUN Creatinine Est GFR (CKD-EPI)AfAm Est GFR (CKD-EPI)NonAf Random Glucose Calcium Magnesium Total Bilirubin AST ALT Alkaline Phosphatase Troponin I 0.12 H 0.12 H Total Protein Albumin 12/30/18 12/30/18 07:30 07:30 WBC RBC Hgb Hct MCV MCH MCHC RDW Plt Count MPV Absolute Neuts (auto) Neutrophils % Lymphocytes % Monocytes % Eosinophils % Basophils % PT with INR INR PTT (Actin FS) 83.3 H Sodium 139 Potassium 3.9 Chloride 106 Carbon Dioxide 22 Anion Gap 11 BUN 38.0 H Creatinine 2.4 H Est GFR (CKD-EPI)AfAm 23.10 Est GFR (CKD-EPI)NonAf 19.93 Random Glucose 112 H Calcium 8.8 Magnesium 2.1 Total Bilirubin 0.7 AST 17 ALT 11 L Alkaline Phosphatase 51 Troponin I Total Protein 6.2 L Albumin 3.3 L Active Medications Generic Name Dose Route Start Last Admin Trade Name Darrinq PRN Reason Stop Dose Admin Albuterol/Ipratropium 1 amp 12/30/18 08:00 12/30/18 08:44 Duoneb - NEB 1 amp RTID KRISTEN Administration Atorvastatin Calcium 20 mg 12/30/18 22:00 Lipitor - PO HS KRISTEN Duloxetine HCl 30 mg 12/30/18 10:00 12/30/18 10:14 Cymbalta - PO 30 mg DAILY KRISTEN Administration Furosemide 40 mg 12/30/18 13:45 Lasix Injection - IVPUSH DAILY KRISTEN Gabapentin 300 mg 12/29/18 22:00 12/29/18 21:40 Neurontin - PO 300 mg HS KRISTEN Administration Heparin Sodium (Porcine) 1,000 unit 12/29/18 21:39 Heparin - IVPUSH PRN PRN Heparin Heparin Sodium (Porcine) 5,000 unit 12/29/18 21:39 Heparin - IVPUSH PRN PRN Heparin Hydralazine HCl 50 mg 12/29/18 22:00 12/30/18 10:14 Apresoline - PO 50 mg BID KRISTEN Administration Heparin Sodium/Dextrose 25,000 units in 500 mls @ 22 mls/hr 12/29/18 21:45 22:38 Heparin Infusion - IVPB 1,100 units/hr TITR KRISTEN 22 mls/hr Administration Protocol 1,100 UNITS/HR Levothyroxine Sodium 25 mcg 12/30/18 07:00 12/30/18 06:41 Synthroid - PO 25 mcg AM KRISTEN Administration Pantoprazole Sodium 40 mg 12/30/18 10:00 12/30/18 10:14 Protonix - PO 40 mg DAILY KRISTEN Administration ASSESSMENT/PLAN: 68 year-old female with a PMH significant for HTN, HLD, iron-deficiency anemia, DVT x 2 in 2007 not on anticoagulation, CKD, GERD, thyroid disease, and OA. Admitted for SOB. Severe systolic heart failure Severe aortic stenosis --Echo: LV severely reduced EF 25-30%, severe global hypokinesis; mild to moderate MR; mild TR; mild pHTN; severe --discussed with cardiology Dr. Palumbo, will get non-contrast CT chest; start Lasix IV --pending pulmonary input re: need for VQ scan --continue heparin drip Hypoxic respiratory failure secondary to systolic heart failure --SpO2 89% on room air at rest --CT chest pending CKD --baseline Cr ~1.9 Elevated troponins --flat trending 0.12-->0.12-->0.12 Hypertension --continue hydralazine Hyperlipidemia --continue Lipitor GERD --continue protonix Hypothyroidism --continue levothyroxine OA --continue Gabapentin Depression/anxiety --continue Cymbalta FEN Fluids: PO intake adequate Electrolytes: replete as indicated Nutrition: low sodium DVT prophylaxis: heparin drip, PTT goal 60-80 Physical therapy Dispo: continues to require inpatient care. Full code. US negative for DVT Echo: Visit type - Emergency Visit Emergency Visit: Yes ED Registration Date: 12/29/18 Care time: The patient presented to the Emergency Department on the above date and was hospitalized for further evaluation of their emergent condition. - New Patient This patient is new to me today: No - Critical Care Critical Care patient: No
--- NOTE | 2018-12-30 14:10 | EKG ---
Test Reason : Blood Pressure : / mmHG Vent. Rate : 101 BPM Atrial Rate : 101 BPM P-R Int : 138 ms QRS Dur : 094 ms QT Int : 388 ms P-R-T Axes : 070 009 088 degrees QTc Int : 503 ms SINUS TACHYCARDIA POSSIBLE LEFT ATRIAL ENLARGEMENT SEPTAL INFARCT (CITED ON OR BEFORE 29-DEC-2018) ABNORMAL ECG WHEN COMPARED WITH ECG OF 29-DEC-2018 15:34, PREMATURE VENTRICULAR COMPLEXES ARE NO LONGER PRESENT Confirmed by KUSHAL SUMMERS, MOI ([id number]) on 12/30/2018 2:10:19 PM Referred By: DR BOLIVAR Confirmed By:MOI FATIMA MD
--- NOTE | 2018-12-30 14:15 | EKG ---
Test Reason : Blood Pressure : / mmHG Vent. Rate : 103 BPM Atrial Rate : 103 BPM P-R Int : 150 ms QRS Dur : 082 ms QT Int : 388 ms P-R-T Axes : 076 018 092 degrees QTc Int : 508 ms SINUS TACHYCARDIA WITH OCCASIONAL PREMATURE VENTRICULAR COMPLEXES POSSIBLE LEFT ATRIAL ENLARGEMENT LEFT VENTRICULAR HYPERTROPHY WITH REPOLARIZATION ABNORMALITY CANNOT RULE OUT SEPTAL INFARCT , AGE UNDETERMINED ABNORMAL ECG WHEN COMPARED WITH ECG OF 01-MAR-2016 14:49, PREMATURE VENTRICULAR COMPLEXES ARE NOW PRESENT MINIMAL CRITERIA FOR SEPTAL INFARCT ARE NOW PRESENT T WAVE INVERSION NOW EVIDENT IN LATERAL LEADS QT HAS LENGTHENED Confirmed by MOI FATIMA MD ([id number]) on 12/30/2018 2:15:29 PM Referred By: DR BOLIVAR Confirmed By:MOI FATIMA MD
[2018-12-30] MEDS: FUROSEMIDE 40 MG/4 ML INJECTABLE VIAL IVPUSH SCH (15:29)
--- NOTE | 2018-12-30 16:38 | PN ---
Progress Note (short form) - Note Progress Note: PULMONARY CHART REVIEWED FULL CONSULT TO FOLLOW Angie ALVARENGA MD
[2018-12-30] MEDS: ATORVASTATIN CA 20 MG TABLET (FP) PO SCH (22:16)
[2018-12-30] MEDS: GABAPENTIN 300 MG CAPSULE (FP) PO SCH (22:17)
[2018-12-30] MEDS: HEPARIN INFUSION - 25,000 UNITS/500 ML INFUS.BAG IVPB SCH (23:08)
[2018-12-31] MEDS: LEVOTHYROXINE NA 25 MCG TABLET (FP) PO SCH (06:20)
[2018-12-31 07:29] LABS: HEMATOCRIT 29.9 % (32.4-45.2); HEMOGLOBIN 9.5 GM/dl (10.7-15.3); MCH 30.4 pg (25.7-33.7); MCHC 31.9 g/dl (32.0-36.0); MEAN CELL VOLUME 95.2 fl (80-96); MEAN PLT VOLUME 8.4 fl (7.5-11.1); PLATELET COUNT 303 K/MM3 (134-434); RBC 3.14 M/mm3 (3.60-5.2); RDW 13.2 % (11.6-15.6); WHITE BLOOD COUNT 4.7 K/mm3 (4.0-10.8)
[2018-12-31] MEDS: ALBUTEROL SO4 2.5/IPRATROPIUM 0.5 INH SOL 3 ML VIAL.NEB. NEB SCH ×3 (07:45→21:42)
[2018-12-31] MEDS: HEPARIN INFUSION - 25,000 UNITS/500 ML INFUS.BAG IVPB SCH (08:07)
[2018-12-31] MEDS: FUROSEMIDE 40 MG/4 ML INJECTABLE VIAL IVPUSH SCH (10:22)
[2018-12-31] MEDS: DULoxetine HCL 30 MG CAPSULE.DR PO SCH (10:22)
[2018-12-31] MEDS: hydrALAZINE HCL 50 MG TABLET (FP) PO SCH ×2 (10:22→21:43)
[2018-12-31] MEDS: PANTOPRAZOLE 40 MG TABLET (FP) PO SCH (10:22)
--- NOTE | 2018-12-31 11:29 | CON.PULM ---
Consult Consult Specialty:: PULMONARY Referred by:: WAYNE Reason for Consultation:: SOB - History of Present Illness Chief Complaint: SOB/COUGH History of Present Illness: 68 y/o female presenting to ER from [facility] complaining of two months of shortness of breath and congestion that acutely worsening over the past few days. Believes breathing pattern became more shallow and sounded funny this morning. Able to take a deep breath. Endorses productive cough but does not know the appearance of the sputum. Endorses worsening exertional dyspnea and orthopnea. Denies chest pain, bilateral leg swelling, or calf tenderness. No recent travel or periods of immobilization. No estrogen therapy. Copy of EKG from revealed sinus tachycardia with a ventricular rate of 136 bpm. Patient attempted relief with Mucinex and Albuterol DuoNebs. Believes her symptoms were related to her long history of allergies and because she has not received allergy shots in four years. Pt has a history of DVT x2 in 2007. First episode possibly believed to be provoked by a kidney infection. Second occurred several months later without clear exciting event. Discontinued AC therapy in 2009. 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 No: AFIB Pulmonary: No: COPD Gastrointestinal: No: Crohn's Disease Hepatobiliary: No: Cholecystitis Renal/: No: Cancer Reproductive: Yes: Postmenopausal Heme/Onc: Yes: Anemia Infectious Disease: No: AIDS Psych: No: Addictions Musculoskeletal: Yes: Bursitis, Osteoarthritis Rheumatology: No: Rheumatoid Arthritis ENT: Yes: Allergic Rhinitis Endocrine: No: Diabetes Mellitus, Hypothyroidism - Alcohol/Substance Use Hx Alcohol Use: No - Smoking History Smoking history: Never smoked Have you smoked in the past 12 months: No Home Medications - Allergies Allergies/Adverse Reactions: Allergies Allergy/AdvReac Type Severity Reaction Status Date / Time NSAIDS (Non-Steroidal AdvReac Mild Vomiting Verified 12/29/18 13:40 Anti-Inflamma ANYTHING THAT AFFECTS KIDNEYS AdvReac Unknown Uncoded 12/29/18 13:40 - Home Medications Home Medications: Ambulatory Orders Hydralazine HCl 50 mg PO BID 03/02/16 Levothyroxine [Synthroid -] 25 mcg PO DAILY 03/02/16 Pantoprazole Sodium 40 mg PO DAILY 03/02/16 Pravastatin Sodium [Pravachol] 60 mg PO DAILY 03/02/16 Duloxetine HCl [Cymbalta -] 30 mg PO DAILY #30 capsule. 03/06/16 Gabapentin 300 mg PO HS 07/23/17 Family Medical History Family History: Unremarkable Review of Systems - Review of Systems Constitutional: reports: Loss of Appetite. denies: Fever Eyes: denies: Double Vision HENT: denies: Ear Discharge Neck: denies: Lumps Cardiovascular: denies: Edema Respiratory: reports: Exercise Intolerance, SOB, SOB on Exertion. denies: Hemoptysis, Snoring Gastrointestinal: denies: Bloating Genitourinary: denies: Discharge Breasts: reports: No Symptoms Reported Integumentary: reports: No Symptoms Physical Exam Vital Sings: Vital Signs Temperature 97.9 F 12/31/18 07:50 Pulse Rate 92 H 12/31/18 07:50 Respiratory Rate 18 12/31/18 09:00 Blood Pressure 142/85 12/31/18 07:50 O2 Sat by Pulse Oximetry (%) 99 12/31/18 09:00 Constitutional: Yes: Calm Eyes: Yes: EOM Intact HENT: Yes: Normocephalic Neck: Yes: Trachea Midline Cardiovascular: Yes: Regular Rate and Rhythm Respiratory: Yes: Rales (at bses) Gastrointestinal: Yes: Normal Bowel Sounds Edema: No Neurological: Yes: Alert Psychiatric: Yes: Alert Labs: CBC, BMP 12/31/18 07:15 12/30/18 07:30 rest reviewed Imaging - Results Chest X-ray: Report Reviewed, Image Reviewed EKG: Report Reviewed, Image Reviewed Other: Report Reviewed, Image Reviewed Problem List - Problems (1) Left ventricular dysfunction Code(s): I51.9 - HEART DISEASE, UNSPECIFIED (2) CKD (chronic kidney disease) Code(s): N18.9 - CHRONIC KIDNEY DISEASE, UNSPECIFIED Qualifiers: Chronic kidney disease stage: unspecified stage Qualified Code(s): N18.9 - Chronic kidney disease, unspecified (3) Shortness of breath Code(s): R06.02 - SHORTNESS OF BREATH (4) Chronic low back pain with bilateral sciatica Code(s): M54.41 - LUMBAGO WITH SCIATICA, RIGHT SIDE; M54.42 - LUMBAGO WITH SCIATICA, LEFT SIDE; G89.29 - OTHER CHRONIC PAIN Qualifiers: Back pain laterality: bilateral Qualified Code(s): M54.42 - Lumbago with sciatica, left side (5) HTN (hypertension) Code(s): I10 - ESSENTIAL (PRIMARY) HYPERTENSION Assessment/Plan LIKELY MAJORITY OF SYMPTOMS ARE DUE TO UNDERLYING CARDIAC DISEASE/ /LVD/? 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
--- NOTE | 2018-12-31 15:27 | PN ---
Physical Exam: SUBJECTIVE: Patient seen and examined OBJECTIVE: Vital Signs Period Temp Pulse Resp BP Sys/Calderon Pulse Ox Last 24 Hr 97.4 F-98.8 F 92-104 16-20 116-156/57-85 94-100 GENERAL: The patient is awake, alert, and fully oriented, in no acute distress. HEAD: Normal with no signs of trauma. EYES: PERRL, extraocular movements intact, sclera anicteric, conjunctiva clear. No ptosis. ENT: Ears normal, nares patent, oropharynx clear without exudates, moist mucous membranes. NECK: Trachea midline, full range of motion, supple. LUNGS: Breath sounds equal, clear to auscultation bilaterally, no wheezes, no crackles, no accessory muscle use. HEART: Regular rate and rhythm, S1, S2 without murmur, rub or gallop. ABDOMEN: Soft, nontender, nondistended, normoactive bowel sounds, no guarding, no rebound, no hepatosplenomegaly, no masses. EXTREMITIES: 2+ pulses, warm, well-perfused, no edema. NEUROLOGICAL: Cranial nerves II through XII grossly intact. Normal speech, gait not observed. PSYCH: Normal mood, normal affect. SKIN: Warm, dry, normal turgor, no rashes or lesions noted Laboratory Results - last 24 hr 12/30/18 12/30/18 12/31/18 14:40 16:25 07:15 WBC 4.7 RBC 3.14 L Hgb 9.5 L Hct 29.9 L MCV 95.2 MCH 30.4 MCHC 31.9 L RDW 13.2 Plt Count 303 MPV 8.4 PTT (Actin FS) 81.3 H D-Dimer 791 H 12/31/18 07:15 WBC RBC Hgb Hct MCV MCH MCHC RDW Plt Count MPV PTT (Actin FS) 81.9 H D-Dimer Active Medications Generic Name Dose Route Start Last Admin Trade Name Freq PRN Reason Stop Dose Admin Albuterol/Ipratropium 1 amp 12/30/18 08:00 12/31/18 13:06 Duoneb - NEB 1 amp RTID KRISTEN Administration Atorvastatin Calcium 20 mg 12/30/18 22:00 12/30/18 22:16 Lipitor - PO 20 mg HS KRISTEN Administration Duloxetine HCl 30 mg 12/30/18 10:00 12/31/18 10:22 Cymbalta - PO 30 mg DAILY KRISTEN Administration Furosemide 40 mg 12/30/18 13:45 12/31/18 10:22 Lasix Injection - IVPUSH 40 mg DAILY KRISTEN Administration Gabapentin 300 mg 12/29/18 22:00 12/30/18 22:17 Neurontin - PO 300 mg HS KRISTEN Administration Hydralazine HCl 50 mg 12/29/18 22:00 12/31/18 10:22 Apresoline - PO 50 mg BID KRISTEN Administration Levothyroxine Sodium 25 mcg 12/30/18 07:00 12/31/18 06:20 Synthroid - PO 25 mcg AM KRISTEN Administration Pantoprazole Sodium 40 mg 12/30/18 10:00 12/31/18 10:22 Protonix - PO 40 mg DAILY KRISTEN Administration ASSESSMENT/PLAN: 68 year-old female with a PMH significant for HTN, HLD, iron-deficiency anemia, DVT x 2 in 2007 not on anticoagulation, CKD, GERD, thyroid disease, and OA. Admitted for severe systolic heart failure. Severe systolic heart failure Severe aortic stenosis --Echo: LV severely reduced EF 25-30%, severe global hypokinesis; mild to moderate MR; mild TR; mild pHTN; severe --CT chest: moderate bilateral pleural effusions --continue IV Lasix --per pulmonary Dr. Marina low suspicion for PE, stop heparin drip --start carvedilol --per cardiology, will plan for ischemic workup with cardiac cath as Cr and CHF improve --outpatient consideration for TAVR Hypoxic respiratory failure secondary to systolic heart failure --SpO2 89% on room air at rest --pre post in am CKD --Cr trending up with diuresis, 2.4 (baseline Cr ~1.9), continue to monitor Elevated troponins --flat trending 0.12-->0.12-->0.12 --ECG no ischemic changes --likely demand in setting of CHF, no signs of ACS Hypertension --continue hydralazine Hyperlipidemia --continue Lipitor GERD --continue protonix Hypothyroidism --continue levothyroxine OA --continue Gabapentin Depression/anxiety --continue Cymbalta FEN Fluids: PO intake adequate Electrolytes: replete as indicated Nutrition: low sodium DVT prophylaxis: start subq heparin Physical therapy Dispo: continues to require inpatient care. Full code. Visit type - Emergency Visit Emergency Visit: Yes ED Registration Date: 12/29/18 Care time: The patient presented to the Emergency Department on the above date and was hospitalized for further evaluation of their emergent condition. - New Patient This patient is new to me today: No - Critical Care Critical Care patient: No
--- NOTE | 2018-12-31 16:47 | PN ---
Progress Note (short form) - Note Progress Note: s: no cp sob palps dizzy Current Medications Generic Name Dose Route Start Last Admin Trade Name Beatrice PRN Reason Stop Dose Admin Albuterol/Ipratropium 1 amp 12/30/18 08:00 12/31/18 13:06 Duoneb - NEB 1 amp RTID KRISTEN Administration Atorvastatin Calcium 20 mg 12/30/18 22:00 12/30/18 22:16 Lipitor - PO 20 mg HS KRISTEN Administration Carvedilol 6.25 mg 12/31/18 22:00 Coreg - PO BID KRISTEN Duloxetine HCl 30 mg 12/30/18 10:00 12/31/18 10:22 Cymbalta - PO 30 mg DAILY KRISTEN Administration Furosemide 40 mg 12/30/18 13:45 12/31/18 10:22 Lasix Injection - IVPUSH 40 mg DAILY KRISTEN Administration Gabapentin 300 mg 12/29/18 22:00 12/30/18 22:17 Neurontin - PO 300 mg HS KRISTEN Administration Hydralazine HCl 50 mg 12/29/18 22:00 12/31/18 10:22 Apresoline - PO 50 mg BID KRISTEN Administration Levothyroxine Sodium 25 mcg 12/30/18 07:00 12/31/18 06:20 Synthroid - PO 25 mcg AM KRISTEN Administration Pantoprazole Sodium 40 mg 12/30/18 10:00 12/31/18 10:22 Protonix - PO 40 mg DAILY KRISTEN Administration Vital Signs Period Temp Pulse Resp BP Sys/Calderon Pulse Ox Last 24 Hr 97.4 F-98.8 F 92-104 16-20 116-156/57-85 94-100 Constitutional: Yes: No Distress, Calm Eyes: Yes: Conjunctiva Clear, EOM Intact HENT: Yes: Atraumatic, Normocephalic Neck: Yes: Supple, Trachea Midline Respiratory: Yes: Regular,dec bs (makayla at bases), nl eff Gastrointestinal: Yes: Normal Bowel Sounds, Soft Cardiovascular: Yes: Regular Rate and Rhythm JVD: Yes Heart Sounds: Yes: S1, S2 Murmur: Yes: Systolic Murmur, Grade 2 Extremities: No: Cold Edema: No Integumentary: No: Jaundice Neurological: Yes: Alert, Oriented Psychiatric: No: Agitated CBC, BMP 12/31/18 07:15 09/26/19 07:30 tele: sr, few beats nsvt Assessment/Plan echo 12/2018 LV mildly dilated, LV function severely reduced, severe global hypokinesis of LV, RV nl, mild to mod MR, mild TR, mild PH, severe (Vmax 3.9 m/s, mean gradient 40 mmHg) tele: sinus, sinus tachycardia acute on chronic systolic HF - new diagnosis, EF 25-30% - cont iv lasix, monitor daily Cr, weights, lytes - start coreg for chf regimen - avoid entresto for now until cr stable - cont hydralazine - will plan for ischemic workup with cardiac cath as Cr/chf improves elevated troponin - EKG no ischemic changes, indeterminate range, flat trend - likely demand in setting of HF, no signs acs severe aortic stenosis - 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
[2018-12-31] MEDS: ATORVASTATIN CA 20 MG TABLET (FP) PO SCH (21:43)
[2018-12-31] MEDS: GABAPENTIN 300 MG CAPSULE (FP) PO SCH (21:43)
[2018-12-31] MEDS: CARVEDILOL 6.25 MG TABLET (FP) PO SCH (21:43)
[2019-01-01] MEDS: LEVOTHYROXINE NA 25 MCG TABLET (FP) PO SCH (06:16)
[2019-01-01 08:51] LABS: HEMOGLOBIN 8.8 GM/dl (10.7-15.3); MCH 30.7 pg (25.7-33.7); MCHC 32.6 g/dl (32.0-36.0); MEAN CELL VOLUME 94.2 fl (80-96); MEAN PLT VOLUME 8.4 fl (7.5-11.1); PLATELET COUNT 300 K/MM3 (134-434); RBC 2.86 M/mm3 (3.60-5.2); RDW 13.3 % (11.6-15.6)
--- NOTE | 2019-01-01 09:42 | PN ---
Progress Note, Physician Chief Complaint: Feels less SOB History of Present Illness: 68 year-old female with a PMH significant for HTN, HLD, iron-deficiency anemia, DVT x 2 in 2008 not on anticoagulation, CKD, GERD, thyroid disease, and OA. Admitted for severe systolic heart failure. - Current Medication List Current Medications: Active Medications Atorvastatin Calcium (Lipitor -) 20 mg PO HS [facility] Last Admin: 12/31/18 21:43 Dose: 20 mg Carvedilol (Coreg -) 6.25 mg PO BID [facility] Last Admin: 12/31/18 21:43 Dose: 6.25 mg Duloxetine HCl (Cymbalta -) 30 mg PO DAILY [facility] Last Admin: 12/31/18 10:22 Dose: 30 mg Furosemide (Lasix Injection -) 40 mg IVPUSH DAILY [facility] Last Admin: 12/31/18 10:22 Dose: 40 mg Gabapentin (Neurontin -) 300 mg PO HS [facility] Last Admin: 12/31/18 21:43 Dose: 300 mg Heparin Sodium (Porcine) (Heparin -) 1,000 unit SQ TID [facility] Hydralazine HCl (Apresoline -) 50 mg PO BID [facility] Last Admin: 12/31/18 21:43 Dose: 50 mg Levothyroxine Sodium (Synthroid -) 25 mcg PO AM [facility] Last Admin: 01/01/19 06:16 Dose: 25 mcg Pantoprazole Sodium (Protonix -) 40 mg PO DAILY [facility] Last Admin: 12/31/18 10:22 Dose: 40 mg - Objective Vital Signs: Vital Signs Temperature 98.0 F 01/01/19 06:12 Pulse Rate 82 01/01/19 06:12 Respiratory Rate 16 01/01/19 07:55 Blood Pressure 117/69 01/01/19 06:12 O2 Sat by Pulse Oximetry (%) 97 01/01/19 07:55 Elderly F not in distress HEENT: Mm moist, no anemia, PERRLA EOMI NECK: No JVd No Bruit CHEST: CTA B/L CVS: S1S2 R SM in AA ABD: No distention non tender EXT: Trace edema feet PAINT GRINDER: AOX3 non focal Labs: CBC, BMP 01/01/19 07:53 12/30/18 07:30 INR, PTT INR 1.05 (0.82-1.09) 12/29/18 20:00 Problem List - Problems (1) Acute on chronic systolic (congestive) heart failure Assessment/Plan: F/U Cardiology recommondation now improving Problems reviewed: Yes Code(s): I50.23 - ACUTE ON CHRONIC SYSTOLIC (CONGESTIVE) HEART FAILURE (2) Severe aortic stenosis Assessment/Plan: consider TAVR as out patient Problems reviewed: Yes Code(s): I35.0 - NONRHEUMATIC AORTIC (VALVE) STENOSIS (3) CKD (chronic kidney disease) Assessment/Plan: F/U BMP Code(s): N18.9 - CHRONIC KIDNEY DISEASE, UNSPECIFIED Qualifiers: Chronic kidney disease stage: stage 3 (moderate) Qualified Code(s): N18.3 - Chronic kidney disease, stage 3 (moderate) (4) HTN (hypertension) Assessment/Plan: Well controlled Code(s): I10 - ESSENTIAL (PRIMARY) HYPERTENSION (5) Chronic anemia Assessment/Plan: Due to CKD and FLORIDALMA Code(s): D64.9 - ANEMIA, UNSPECIFIED (6) Elevated troponin Assessment/Plan: Falte no chest pain no EKG changes in the setting of CHF with CKD Code(s): R74.8 - ABNORMAL LEVELS OF OTHER SERUM ENZYMES
[2019-01-01] MEDS: CARVEDILOL 6.25 MG TABLET (FP) PO SCH ×2 (09:46→21:23)
[2019-01-01] MEDS: FUROSEMIDE 40 MG/4 ML INJECTABLE VIAL IVPUSH SCH (09:47)
[2019-01-01] MEDS: PANTOPRAZOLE 40 MG TABLET (FP) PO SCH (09:47)
[2019-01-01] MEDS: DULoxetine HCL 30 MG CAPSULE.DR PO SCH (09:48)
[2019-01-01] MEDS: hydrALAZINE HCL 50 MG TABLET (FP) PO SCH ×2 (09:48→21:22)
[2019-01-01 10:02] LABS: CALCIUM 8.6 mg/dl (8.5-10); CREATININE 2.3 mg/dl (0.55-1.3); POTASSIUM 4.1 mmol/L (3.5-5.1)
[2019-01-01 11:49] LABS: N-TERMINAL BNP 20256.8 pg/ml (5-125)
--- NOTE | 2019-01-01 12:43 | PN ---
Progress Note (short form) - Note Progress Note: s: no cp sob palps dizzy Current Medications Generic Name Dose Route Start Last Admin Trade Name Darrinq PRN Reason Stop Dose Admin Atorvastatin Calcium 20 mg 12/30/18 22:00 12/31/18 21:43 Lipitor - PO 20 mg HS KRISTEN Administration Carvedilol 6.25 mg 12/31/18 22:00 01/01/19 09:46 Coreg - PO 6.25 mg BID KRISTEN Administration Duloxetine HCl 30 mg 12/30/18 10:00 01/01/19 09:48 Cymbalta - PO 30 mg DAILY KRISTEN Administration Furosemide 40 mg 12/30/18 13:45 01/01/19 09:47 Lasix Injection - IVPUSH 40 mg DAILY KRISTEN Administration Gabapentin 300 mg 12/29/18 22:00 12/31/18 21:43 Neurontin - PO 300 mg HS KRISTEN Administration Heparin Sodium (Porcine) 1,000 unit 01/01/19 14:00 Heparin - SQ TID KRISTEN Hydralazine HCl 50 mg 12/29/18 22:00 01/01/19 09:48 Apresoline - PO 50 mg BID KRISTEN Administration Levothyroxine Sodium 25 mcg 12/30/18 07:00 01/01/19 06:16 Synthroid - PO 25 mcg AM KRISTEN Administration Pantoprazole Sodium 40 mg 12/30/18 10:00 01/01/19 09:47 Protonix - PO 40 mg DAILY KRISTEN Administration Vital Signs Period Temp Pulse Resp BP Sys/Calderon Pulse Ox Last 24 Hr 97.9 F-98.7 F 82-104 16-19 101-149/54-81 95-100 Constitutional: Yes: No Distress, Calm Eyes: Yes: Conjunctiva Clear, EOM Intact HENT: Yes: Atraumatic, Normocephalic Neck: Yes: Supple, Trachea Midline Respiratory: cta bl nl eff Gastrointestinal: Yes: Normal Bowel Sounds, Soft Cardiovascular: Yes: Regular Rate and Rhythm JVD: no Heart Sounds: Yes: S1, S2 Murmur: Yes: Systolic Murmur, Grade 2 Extremities: No: Cold Edema: No Integumentary: No: Jaundice Neurological: Yes: Alert, Oriented Psychiatric: No: Agitated CBC, BMP 01/01/19 07:53 01/01/19 07:53 tele: sr,brief nsvt Assessment/Plan echo 12/2018 LV mildly dilated, LV function severely reduced, severe global hypokinesis of LV, RV nl, mild to mod MR, mild TR, mild PH, severe (Vmax 3.9 m/s, mean gradient 40 mmHg) acute on chronic systolic HF - new diagnosis, EF 25-30% - cont iv lasix, monitor daily Cr, weights, lytes - started coreg for chf regimen - avoid entresto for now until cr stable - cont hydralazine - ischemic eval as chf improves elevated troponin - EKG no ischemic changes, indeterminate range, flat trend - likely demand in setting of HF, no signs acs severe aortic stenosis - 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
[2019-01-01] MEDS: HEPARIN NA (PORCINE) 5,000 UNITS/ML 1ML VIAL SQ SCH ×2 (17:29→21:23)
[2019-01-01] MEDS: GABAPENTIN 300 MG CAPSULE (FP) PO SCH (21:22)
[2019-01-01] MEDS: ATORVASTATIN CA 20 MG TABLET (FP) PO SCH (21:23)
[2019-01-02] MEDS: LEVOTHYROXINE NA 25 MCG TABLET (FP) PO SCH (06:27)
[2019-01-02 08:54] LABS: CALCIUM 8.6 mg/dl (8.5-10); CREATININE 2.4 mg/dl (0.55-1.3)
[2019-01-02 08:55] LABS: HEMATOCRIT 27.7 % (32.4-45.2); HEMOGLOBIN 9.1 GM/dl (10.7-15.3); MCH 31.5 pg (25.7-33.7); MCHC 32.7 g/dl (32.0-36.0); MEAN CELL VOLUME 96.4 fl (80-96); MEAN PLT VOLUME 8.7 fl (7.5-11.1); PLATELET COUNT 306 K/MM3 (134-434); RBC 2.87 M/mm3 (3.60-5.2); RDW 13.1 % (11.6-15.6); WHITE BLOOD COUNT 6.2 K/mm3 (4.0-10.8)
[2019-01-02] MEDS: PANTOPRAZOLE 40 MG TABLET (FP) PO SCH (09:35)
[2019-01-02] MEDS: CARVEDILOL 6.25 MG TABLET (FP) PO SCH ×2 (09:36→22:03)
[2019-01-02] MEDS: HEPARIN NA (PORCINE) 5,000 UNITS/ML 1ML VIAL SQ SCH ×2 (09:36→22:03)
[2019-01-02] MEDS: FUROSEMIDE 40 MG/4 ML INJECTABLE VIAL IVPUSH SCH (09:36)
[2019-01-02] MEDS: hydrALAZINE HCL 50 MG TABLET (FP) PO SCH ×2 (09:36→22:03)
[2019-01-02] MEDS: DULoxetine HCL 30 MG CAPSULE.DR PO SCH (09:36)
--- NOTE | 2019-01-02 09:36 | PN ---
Physical Exam: SUBJECTIVE: Patient seen and examined. No signs of acute distress. Pt states she has been couching. Sometimes she coughs up something and sometimes. OBJECTIVE: Vital Signs Period Temp Pulse Resp BP Sys/Calderon Pulse Ox Last 24 Hr 96.7 F-99.0 F 85-99 16-19 98-117/54-71 95-95 GENERAL: The patient is awake, alert, and fully oriented, in no acute distress. HEAD: Normal with no signs of trauma. EYES: PERRL, extraocular movements intact, sclera anicteric, conjunctiva clear. No ptosis. ENT: Ears normal, nares patent, oropharynx clear without exudates, moist mucous membranes. NECK: Trachea midline, full range of motion, supple. LUNGS: Breath sounds equal, clear to auscultation bilaterally, no wheezes, no crackles, no accessory muscle use. HEART: Regular rate and rhythm, S1, S2 with murmur ABDOMEN: Soft, nontender, nondistended, normoactive bowel sounds, no guarding, no rebound, no hepatosplenomegaly, no masses. EXTREMITIES: 2+ pulses, warm, well-perfused, no edema. NEUROLOGICAL: Cranial nerves II through XII grossly intact. Normal speech, gait not observed. PSYCH: Normal mood, normal affect. SKIN: Warm, dry, normal turgor, no rashes or lesions noted Laboratory Results - last 24 hr 01/01/19 01/01/19 01/02/19 07:53 07:53 08:15 WBC 6.2 RBC 2.87 L Hgb 9.1 L Hct 27.7 L MCV 96.4 H MCH 31.5 MCHC 32.7 RDW 13.1 Plt Count 306 MPV 8.7 PTT (Actin FS) Sodium 140 Potassium 4.1 Chloride 102 Carbon Dioxide 29 Anion Gap 9 BUN 34.0 H Creatinine 2.3 H Est GFR (CKD-EPI)AfAm 24.32 Est GFR (CKD-EPI)NonAf 20.98 Random Glucose 104 Calcium 8.6 B-Natriuretic Peptide 66058.8 H TSH 1.18 01/02/19 01/02/19 08:15 08:15 WBC RBC Hgb Hct MCV MCH MCHC RDW Plt Count MPV PTT (Actin FS) 29.8 Sodium 137 Potassium 4.0 Chloride 96 L Carbon Dioxide 29 Anion Gap 12 BUN 33.0 H Creatinine 2.4 H Est GFR (CKD-EPI)AfAm 23.10 Est GFR (CKD-EPI)NonAf 19.93 Random Glucose 109 H Calcium 8.6 B-Natriuretic Peptide TSH Active Medications Generic Name Dose Route Start Last Admin Trade Name Beatrice PRN Reason Stop Dose Admin Atorvastatin Calcium 20 mg 12/30/18 22:00 01/01/19 21:23 Lipitor - PO 20 mg HS KRISTEN Administration Carvedilol 6.25 mg 12/31/18 22:00 01/01/19 21:23 Coreg - PO 6.25 mg BID KRISTEN Administration Duloxetine HCl 30 mg 12/30/18 10:00 01/01/19 09:48 Cymbalta - PO 30 mg DAILY KRISTEN Administration Furosemide 40 mg 12/30/18 13:45 01/01/19 09:47 Lasix Injection - IVPUSH 40 mg DAILY KRISTEN Administration Gabapentin 300 mg 12/29/18 22:00 01/01/19 21:22 Neurontin - PO 300 mg HS KRISTEN Administration Heparin Sodium (Porcine) 5,000 unit 01/01/19 17:15 01/01/19 21:23 Heparin - SQ 5,000 unit BID KRISTEN Administration Hydralazine HCl 50 mg 12/29/18 22:00 01/01/19 21:22 Apresoline - PO 50 mg BID KRISTEN Administration Levothyroxine Sodium 25 mcg 12/30/18 07:00 01/02/19 06:27 Synthroid - PO 25 mcg AM KRISTEN Administration Pantoprazole Sodium 40 mg 12/30/18 10:00 01/01/19 09:47 Protonix - PO 40 mg DAILY KRISTEN Administration ASSESSMENT/PLAN: 68 year-old female with a PMH significant for HTN, HLD, iron-deficiency anemia, DVT x 2 in 2007 not on anticoagulation, CKD, GERD, thyroid disease, and OA. Admitted for severe systolic heart failure. Severe systolic heart failure Severe aortic stenosis --Echo: LV severely reduced EF 25-30%, severe global hypokinesis; mild to moderate MR; mild TR; mild pHTN; severe --CT chest: moderate bilateral pleural effusions --continue IV Lasix --per pulmonary Dr. Marina low suspicion for PE, stop heparin drip --start carvedilol for CHF --per cardiology, will plan for ischemic workup with cardiac cath as Cr and CHF improve --outpatient consideration for TAVR Hypoxic respiratory failure secondary to systolic heart failure --SpO2 89% on room air at rest --pre post in am CKD --Cr trending up with diuresis, 2.4 (baseline Cr ~1.9), continue to monitor --Pt sees Dr. Medina-Belt Molder, and has an appt in two weeks Elevated troponins --flat trending 0.12-->0.12-->0.12 --ECG no ischemic changes --likely demand in setting of CHF, no signs of ACS Hypertension --continue hydralazine Hyperlipidemia --continue Lipitor dental infections -- on abx, recently had multiple teeth removed GERD --continue protonix Hypothyroidism --continue levothyroxine OA --continue Gabapentin Depression/anxiety --continue Cymbalta FEN Fluids: PO intake adequate Electrolytes: replete as indicated Nutrition: low sodium DVT prophylaxis: start subq heparin Physical therapy Dispo: continues to require inpatient care. Full code. Visit type - Emergency Visit Emergency Visit: Yes ED Registration Date: 12/29/18 Care time: The patient presented to the Emergency Department on the above date and was hospitalized for further evaluation of their emergent condition. - New Patient This patient is new to me today: Yes Date on this admission: 01/02/19 - Critical Care Critical Care patient: No - Discharge Referral Referred to [facility] No
--- NOTE | 2019-01-02 13:07 | PN ---
Progress Note (short form) - Note Progress Note: s: no cp sob palps dizzy Current Medications Generic Name Dose Route Start Last Admin Trade Name Darrinq PRN Reason Stop Dose Admin Atorvastatin Calcium 20 mg 12/30/18 22:00 01/01/19 21:23 Lipitor - PO 20 mg HS KRISTEN Administration Carvedilol 6.25 mg 12/31/18 22:00 01/02/19 09:36 Coreg - PO 6.25 mg BID KRISTEN Administration Duloxetine HCl 30 mg 12/30/18 10:00 01/02/19 09:36 Cymbalta - PO 30 mg DAILY KRISTEN Administration Furosemide 40 mg 01/03/19 10:00 Lasix - PO DAILY KRISTEN Gabapentin 300 mg 12/29/18 22:00 01/01/19 21:22 Neurontin - PO 300 mg HS KRISTEN Administration Heparin Sodium (Porcine) 5,000 unit 01/01/19 17:15 01/02/19 09:36 Heparin - SQ 5,000 unit BID KRISTEN Administration Hydralazine HCl 50 mg 12/29/18 22:00 01/02/19 09:36 Apresoline - PO 50 mg BID KRISTEN Administration Levothyroxine Sodium 25 mcg 12/30/18 07:00 01/02/19 06:27 Synthroid - PO 25 mcg AM KRISTEN Administration Pantoprazole Sodium 40 mg 12/30/18 10:00 01/02/19 09:35 Protonix - PO 40 mg DAILY KRISTEN Administration Vital Signs Period Temp Pulse Resp BP Sys/Calderon Pulse Ox Last 24 Hr 96.7 F-99.0 F 85-99 16-19 98-117/56-71 95-98 Constitutional: Yes: No Distress, Calm Eyes: Yes: Conjunctiva Clear, EOM Intact HENT: Yes: Atraumatic, Normocephalic Neck: Yes: Supple, Trachea Midline Respiratory: cta bl nl eff Gastrointestinal: Yes: Normal Bowel Sounds, Soft Cardiovascular: Yes: Regular Rate and Rhythm JVD: no Heart Sounds: Yes: S1, S2 Murmur: Yes: Systolic Murmur, Grade 2 Extremities: No: Cold Edema: No Integumentary: No: Jaundice Neurological: Yes: Alert, Oriented Psychiatric: No: Agitated CBC, BMP 01/02/19 08:15 01/02/19 08:15 tele: sr Assessment/Plan echo 12/2018 LV mildly dilated, LV function severely reduced, severe global hypokinesis of LV, RV nl, mild to mod MR, mild TR, mild PH, severe (Vmax 3.9 m/s, mean gradient 40 mmHg) acute on chronic systolic HF - new diagnosis, EF 25-30% - pt has no chf symptoms now and lung exam improved. will check cxr. change to po lasix starting tomorrow. 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
[2019-01-02] MEDS: ATORVASTATIN CA 20 MG TABLET (FP) PO SCH (22:03)
[2019-01-02] MEDS: GABAPENTIN 300 MG CAPSULE (FP) PO SCH (22:03)
--- NOTE | 2019-01-03 06:22 | PN ---
Physical Exam: SUBJECTIVE: Patient seen and examined OBJECTIVE: Vital Signs Period Temp Pulse Resp BP Sys/Calderon Pulse Ox Last 24 Hr 97.9 F-99.0 F 85-95 17-19 104-119/56-65 94-100 GENERAL: The patient is awake, alert, and fully oriented, in no acute distress. HEAD: Normal with no signs of trauma. EYES: PERRL, extraocular movements intact, sclera anicteric, conjunctiva clear. No ptosis. ENT: Ears normal, nares patent, oropharynx clear without exudates, moist mucous membranes. NECK: Trachea midline, full range of motion, supple. LUNGS: Breath sounds equal, clear to auscultation bilaterally, no wheezes, no crackles, no accessory muscle use. HEART: Regular rate and rhythm, S1, S2 without murmur, rub or gallop. ABDOMEN: Soft, nontender, nondistended, normoactive bowel sounds, no guarding, no rebound, no hepatosplenomegaly, no masses. EXTREMITIES: 2+ pulses, warm, well-perfused, no edema. NEUROLOGICAL: Cranial nerves II through XII grossly intact. Normal speech, gait not observed. PSYCH: Normal mood, normal affect. SKIN: Warm, dry, normal turgor, no rashes or lesions noted Laboratory Results - last 24 hr 01/02/19 01/02/19 01/02/19 08:15 08:15 08:15 WBC 6.2 RBC 2.87 L Hgb 9.1 L Hct 27.7 L MCV 96.4 H MCH 31.5 MCHC 32.7 RDW 13.1 Plt Count 306 MPV 8.7 PTT (Actin FS) 29.8 Sodium 137 Potassium 4.0 Chloride 96 L Carbon Dioxide 29 Anion Gap 12 BUN 33.0 H Creatinine 2.4 H Est GFR (CKD-EPI)AfAm 23.10 Est GFR (CKD-EPI)NonAf 19.93 Random Glucose 109 H Calcium 8.6 Active Medications Generic Name Dose Route Start Last Admin Trade Name Freq PRN Reason Stop Dose Admin Atorvastatin Calcium 20 mg 12/30/18 22:00 01/02/19 22:03 Lipitor - PO 20 mg HS KRISTEN Administration Carvedilol 6.25 mg 12/31/18 22:00 01/02/19 22:03 Coreg - PO 6.25 mg BID KRISTEN Administration Duloxetine HCl 30 mg 12/30/18 10:00 01/02/19 09:36 Cymbalta - PO 30 mg DAILY KRISTEN Administration Furosemide 40 mg 01/03/19 10:00 Lasix - PO DAILY KRISTEN Gabapentin 300 mg 12/29/18 22:00 01/02/19 22:03 Neurontin - PO 300 mg HS KRISTEN Administration Heparin Sodium (Porcine) 5,000 unit 01/01/19 17:15 01/02/19 22:03 Heparin - SQ 5,000 unit BID KRISTEN Administration Hydralazine HCl 50 mg 12/29/18 22:00 01/02/19 22:03 Apresoline - PO 50 mg BID KRISTEN Administration Levothyroxine Sodium 25 mcg 12/30/18 07:00 01/02/19 06:27 Synthroid - PO 25 mcg AM KRISTEN Administration Pantoprazole Sodium 40 mg 12/30/18 10:00 01/02/19 09:35 Protonix - PO 40 mg DAILY KRISTEN Administration ASSESSMENT/PLAN:
[2019-01-03] MEDS: LEVOTHYROXINE NA 25 MCG TABLET (FP) PO SCH (06:34)
[2019-01-03 07:55] LABS: HEMATOCRIT 27.5 % (32.4-45.2); HEMOGLOBIN 8.7 GM/dl (10.7-15.3); MCH 30.3 pg (25.7-33.7); MCHC 31.8 g/dl (32.0-36.0); MEAN CELL VOLUME 95.4 fl (80-96); MEAN PLT VOLUME 8.3 fl (7.5-11.1); PLATELET COUNT 312 K/MM3 (134-434); RBC 2.88 M/mm3 (3.60-5.2)
[2019-01-03] MEDS ORDERED: REGADENOSON 0.4 MG/5 ML PRE-FILLED SYRINGE IVPUSH ONE ×2 (09:10→09:15)
[2019-01-03] MEDS ORDERED: FUROSEMIDE 40 MG TABLET (FP) PO SCH (10:00)
--- NOTE | 2019-01-03 11:55 | PN ---
Progress Note (short form) - Note Progress Note: s: no cp sob palps dizzy; feels well, asking to go home today Current Medications Generic Name Dose Route Start Last Admin Trade Name Beatrice PRN Reason Stop Dose Admin Atorvastatin Calcium 20 mg 12/30/18 22:00 01/02/19 22:03 Lipitor - PO 20 mg HS KRISTEN Administration Carvedilol 6.25 mg 12/31/18 22:00 01/02/19 22:03 Coreg - PO 6.25 mg BID KRISTEN Administration Duloxetine HCl 30 mg 12/30/18 10:00 01/02/19 09:36 Cymbalta - PO 30 mg DAILY KRISTEN Administration Furosemide 40 mg 01/03/19 10:00 Lasix - PO DAILY KRISTEN Gabapentin 300 mg 12/29/18 22:00 01/02/19 22:03 Neurontin - PO 300 mg HS KRISTEN Administration Heparin Sodium (Porcine) 5,000 unit 01/01/19 17:15 01/02/19 22:03 Heparin - SQ 5,000 unit BID KRISTEN Administration Hydralazine HCl 50 mg 12/29/18 22:00 01/02/19 22:03 Apresoline - PO 50 mg BID KRISTEN Administration Levothyroxine Sodium 25 mcg 12/30/18 07:00 01/03/19 06:34 Synthroid - PO 25 mcg AM KRISTEN Administration Pantoprazole Sodium 40 mg 12/30/18 10:00 01/02/19 09:35 Protonix - PO 40 mg DAILY KRISTEN Administration Vital Signs Period Temp Pulse Resp BP Sys/Calderon Pulse Ox Last 24 Hr 97.9 F-98.8 F 83-95 17-18 102-119/57-65 94-100 Constitutional: Yes: No Distress, Calm Eyes: Yes: Conjunctiva Clear, EOM Intact HENT: Yes: Atraumatic, Normocephalic Neck: Yes: Supple, Trachea Midline Respiratory: cta bl nl eff Gastrointestinal: Yes: Normal Bowel Sounds, Soft Cardiovascular: Yes: Regular Rate and Rhythm JVD: no Heart Sounds: Yes: S1, S2 Murmur: Yes: Systolic Murmur, Grade 2 Extremities: No: Cold Edema: No Integumentary: No: Jaundice Neurological: Yes: Alert, Oriented Psychiatric: No: Agitated CBC, BMP 01/03/19 07:05 01/02/19 08:15 tele: sr Assessment/Plan echo 12/2018 LV mildly dilated, LV function severely reduced, severe global hypokinesis of LV, RV nl, mild to mod MR, mild TR, mild PH, severe (Vmax 3.9 m/s, mean gradient 40 mmHg) acute on chronic systolic HF - new diagnosis, EF 25-30% - pt has no chf symptoms now and lung exam improved. cxr also shows clear lungs now. cont po lasix. - started coreg for chf regimen - avoid entresto/david for now until cr stable - cont hydralazine - having mibi today for ischemic eval (given that her cr remains elevated will avoid cath for now). If stress test shows no significant ischemia then ok for dc today from cardiac pov with outpt f/u 1-2 weeks. 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
[2019-01-03] MEDS: CARVEDILOL 6.25 MG TABLET (FP) PO SCH (13:54)
[2019-01-03] MEDS: HEPARIN NA (PORCINE) 5,000 UNITS/ML 1ML VIAL SQ SCH (13:54)
[2019-01-03] MEDS: PANTOPRAZOLE 40 MG TABLET (FP) PO SCH (13:54)
[2019-01-03] MEDS: DULoxetine HCL 30 MG CAPSULE.DR PO SCH (13:54)
[2019-01-03] MEDS: hydrALAZINE HCL 50 MG TABLET (FP) PO SCH (13:55)
[2019-01-03 14:08] VITALS: BP 117/61; PULSE 89; TEMP 98.1
--- NOTE | 2019-01-03 15:16 | DS ---
Physical Exam: SUBJECTIVE: Patient seen and examined OBJECTIVE: Vital Signs Period Temp Pulse Resp BP Sys/Calderon Pulse Ox Last 24 Hr 97.9 F-98.8 F 83-95 16-18 102-119/57-65 94-96 PHYSICAL EXAM GENERAL: The patient is awake, alert, and fully oriented, in no acute distress. LUNGS: CTA HEART: Regular rate and rhythm, S1, S2 ABDOMEN: Soft, nontender, nondistended EXTREMITIES: 2+ pulses, warm, well-perfused, no edema. NEUROLOGICAL: Cranial nerves II through XII grossly intact. Normal speech, gait not observed. LABS Laboratory Results - last 24 hr 01/03/19 01/03/19 07:05 07:05 WBC 5.0 RBC 2.88 L Hgb 8.7 L Hct 27.5 L MCV 95.4 MCH 30.3 MCHC 31.8 L RDW 14.0 Plt Count 312 MPV 8.3 PTT (Actin FS) 28.7 HOSPITAL COURSE: Date of Admission:12/29/18 Date of Discharge: 01/03/19 Pre hospital course 68 year-old female with a PMH significant for HTN, HLD, iron-deficiency anemia, DVT x 2 in 2007 not on anticoagulation, CKD, GERD, thyroid disease, and OA. Presented to [facility] from [facility] complaining of two months of shortness of breath and congestion that acutely worsening over the past few days. Believes breathing pattern became more shallow and sounded funny this morning. Endorses productive cough but does not know the appearance of the sputum. Endorses worsening exertional dyspnea and orthopnea. Denies chest pain, bilateral leg swelling, or calf tenderness. No recent travel or periods of immobilization. No estrogen therapy. Pt has a history of DVT x2 in 2007. First episode possibly believed to be provoked by a kidney infection. Second occurred several months later without clear exciting event. Discontinued AC therapy in 2009. ER course (1) Cr 2.2 (baseline 1.9) (2) Troponin neg x 1 (3) EKG from urgent care showed sinus tachycardia @ 136 bpm Suybsequent hospital course 68 year-old female with a PMH significant for HTN, HLD, iron-deficiency anemia, DVT x 2 in 2007 not on anticoagulation, CKD, GERD, thyroid disease, and OA. Admitted for severe systolic heart failure. Severe systolic heart failure Severe aortic stenosis Hypoxic respiratory failure secondary to systolic heart failure --Echo: LV severely reduced EF 25-30%, severe global hypokinesis; mild to moderate MR; mild TR; mild pHTN; severe --CT chest: moderate bilateral pleural effusions --treated with IV lasix with improvement in lung congestion; SpO2 was 89% on room air on admission, improved to 96% on room air at time of discharge --initial concern for PE, started on heparin drip; could not do CTA due to elevated Cr; seen and evaluated by pulmonary for possible VQ scan, low suspicion for PE and heparin dripped was stopped --initiated carvedilol --nuclear stress negative for ischemia; EF 27% --outpatient followup, to consider TAVR CKD --Cr 2.2-->2.4 (baseline Cr ~1.9) Elevated troponins --flat trending 0.12-->0.12-->0.12 --ECG no ischemic changes --likely demand in setting of CHF, no signs of ACS Hypertension --continued hydralazine Hyperlipidemia --continued Lipitor GERD --continued protonix Hypothyroidism --continued levothyroxine OA --continued Gabapentin Depression/anxiety --continued Cymbalta Minutes to complete discharge: 35 Discharge Summary Problems reviewed: Yes Reason For Visit: SOB/ELEVATED TROPONIN LEVEL/PNEUMONIA Current Active Problems Acute on chronic systolic (congestive) heart failure (Acute) CKD (chronic kidney disease) (Acute) Chronic anemia (Acute) Elevated troponin (Acute) Left ventricular dysfunction (Acute) Pneumonia (Acute) Severe aortic stenosis (Acute) Shortness of breath (Acute) Condition: Improved - Instructions Diet, Activity, Other Instructions: Two prescriptions have been sent to your pharmacy. One is for carvedilol and the other is for Lasix. Take these medications as directed. It is recommended you follow up with Dr. Medina and with Dr. Jain within one week of your discharge. Try to adhere to a low sodium diet. Information is contained in this discharge packet. You should also restrict your fluid intake to 1 to 1.5L per 24 hours. Return to the emergency department for any new or worsening symptoms. Referrals: Drew Jain MD [Staff Physician] - 1 Week Perry Medina MD [Primary Care Provider] - 1 Week Disposition: HOME - Home Medications Comprehensive Discharge Medication List: Ambulatory Orders Hydralazine HCl 50 mg PO BID 11/27/16 Levothyroxine [Synthroid -] 25 mcg PO DAILY 03/02/16 Pantoprazole Sodium 40 mg PO DAILY 03/02/16 Pravastatin Sodium [Pravachol] 60 mg PO DAILY 03/02/16 Duloxetine HCl [Cymbalta -] 30 mg PO DAILY #30 capsule. 03/06/16 Gabapentin 300 mg PO HS 07/23/17 Prescription Drug Monitoring Program (I-STOP) results: I-STOP not reviewed This patient is new to me today: No Emergency Visit: Yes ED Registration Date: 12/29/18 Care time: The patient presented to the Emergency Department on the above date and was hospitalized for further evaluation of their emergent condition. Critical Care patient: No - Discharge Referral Referred to [facility] Med [facility] No
== END 2019-01-03 16:19 | disposition home or self-care (01) | DRG 291 ==
LOC: FER 13:39 → FM/S 20:32
PROVIDERS: ADMIT Internal Medicine; ATTEND Nurse Practitioner Acute Care
DX: I13.0 Hypertensive heart and chronic kidney disease with heart failure and stage 1 through stage 4 chronic kidney disease, or unspecified chronic kidney disease (principal); I50.23 Acute on chronic systolic (congestive) heart failure; J96.01 Acute respiratory failure with hypoxia; I35.0 Nonrheumatic aortic (valve) stenosis; E78.5 Hyperlipidemia, unspecified; K21.9 Gastro-esophageal reflux disease without esophagitis; F41.8 Other specified anxiety disorders; E03.9 Hypothyroidism, unspecified; D50.9 Iron deficiency anemia, unspecified; N18.3 Chronic kidney disease, stage 3 (moderate); R74.8 Abnormal levels of other serum enzymes; R00.0 Tachycardia, unspecified; M19.90 Unspecified osteoarthritis, unspecified site
CPT/HCPCS: 36415; 71045-TC-FY; 71046-TC-FY; 71250-TC; 78452-TC; 80048; 80053; 83735; 83880; 84436; 84443; 84484; 85025; 85027; 85379; 85610; 85730; 86376; 86800; 93005; 93017; 93306-TC; 93970-TC; 94640; 99284-25; A9502; J1644; J2785